=== PATIENT | female | born 2000 | race Caucasian/White ===

== ENCOUNTER 2020-01-27 07:30 | Emergency (ER) | payer SELFPAY ==
[~2020-01-27] VITALS: Ht 162.6 cm; Wt 61.4 kg
[2020-01-27 08:22] VITALS: BP 85/60
== END 2020-01-27 08:27 | disposition home or self-care (01) ==
LOC: ER 07:31
DX: R07.89 Other chest pain (principal); M79.602 Pain in left arm; M54.9 Dorsalgia, unspecified; F41.9 Anxiety disorder, unspecified; F17.200 Nicotine dependence, unspecified, uncomplicated
CPT/HCPCS: 71046; 93005; 99283

== ENCOUNTER 2022-06-07 22:46 | Emergency (ER) | payer SELFPAY ==
[~2022-06-07] VITALS: Ht 162.6 cm; Wt 69.6 kg
[2022-06-07 22:50] VITALS: BP 117/54
[2022-06-07 23:29] LABS: URINE HCG NEGATIVE (NEG)
[2022-06-07 23:30] LABS: COLOR,URINE YELLOW (Yellow); GLUCOSE, URINE NEGATIVE (Neg); KETONES,URINE NEGATIVE (Neg); LEUKOCYTE ESTERASE ,URINE NEGATIVE (Neg); NITRITES, URINE NEGATIVE (Neg); OCCULT BLOOD,URINE NEGATIVE (Neg); PROTEIN,URINE NEGATIVE (Neg); UROBILINOGEN,URINE 0.2 E.U/dL (0.2-1.0)
[2022-06-07 23:30] LABS: BASOPHILS % (AUTO) 0.7 % (0-1); EOSINOPHILS # (AUTO) 0.1 X10'3 (0-0.9); HEMATOCRIT 35.5 % (35.0-45.0); HEMOGLOBIN 11.5 g/dl (12.0-16.0); LYMPHOCYTES # (AUTO) 1.1 X10'3 (1.1-4.8); LYMPHOCYTES % (AUTO) 17.6 % (21-51); MEAN CORPUSCULAR HEMOGLOBIN 28.9 PG (27.0-31.0); MEAN CORPUSCULAR HGB CONC 32.4 g/dL (33.0-36.5); MEAN CORPUSCULAR VOLUME 89.3 FL (78-98); MONOCYTES # (AUTO) 0.4 X10'3 (0-0.9); MONOCYTES % (AUTO) 5.5 % (2-12); NEUTROPHILS # (AUTO) 4.8 X10'3 (1.8-7.7); NEUTROPHILS % (AUTO) 74.2 % (42-75); PLATELET COUNT 248 X10'3 (140-440); RED BLOOD COUNT 3.97 X10'6 (4.20-5.60); WHITE BLOOD COUNT 6.5 X10'3 (4.5-11.0)
[2022-06-07 23:36] LABS: CLARITY,URINE SLIGHTLY CLOUDY (Clear); UA COLLECTION TYPE CLN CATCH MIDSTREAM
[2022-06-07 23:37] LABS: BACTERIA,URINE 1+ /HPF (Neg); RBC,URINE NONE SEEN /HPF (0-2); WBC,URINE 0-4 /HPF (0-4)
[2022-06-07 23:37] LABS: ALANINE AMINOTRANSFERASE 21 U/L (12-78); ALBUMIN 3.7 G/DL (3.4-5.0); ALKALINE PHOSPHATASE 64 IU/L (46-116); ANION GAP 4 (8-16); ASPARTATE AMINO TRANSFERASE 41 U/L (10-37); BILIRUBIN,TOTAL 0.5 MG/DL (0.1-1.0); BLOOD UREA NITROGEN 6 MG/DL (7-18); BUN/CREATININE RATIO 7.5 (6.6-38.0); CALCIUM 8.4 MG/DL (8.5-10.1); CHLORIDE 103 MMOL/L (99-107); GLUCOSE 82 MG/DL (70-104); LIPASE 99 U/L (73-393); POTASSIUM 3.6 MMOL/L (3.5-5.1); SODIUM 138 MMOL/L (135-145); TOTAL PROTEIN 7.5 G/DL (6.4-8.2); eGFR 90 ML/MIN
[2022-06-07 23:38] LABS: MUCUS STRANDS MODERATE /LPF (Neg); SQUAMOUS EPITHELIAL CELL,UR FEW /LPF (FEW)
== END 2022-06-08 08:48 | disposition left against medical advice (07) ==
LOC: ER 22:47
DX: N23 Unspecified renal colic (principal); Z53.21 Procedure and treatment not carried out due to patient leaving prior to being seen by health care provider
CPT/HCPCS: 36415; 80053; 81001; 81025; 83690; 85025

== ENCOUNTER 2022-12-09 16:57 | Emergency (ER) | payer OTHER ==
[~2022-12-09] VITALS: Ht 162.6 cm; Wt 75.0 kg
[2022-12-09 17:02] VITALS: BP 101/60
[2022-12-09 18:24] LABS: URINE HCG NEGATIVE (NEG)
[2022-12-09 18:34] LABS: CLARITY,URINE SLIGHTLY CLOUDY (Clear); COLOR,URINE YELLOW (Yellow); GLUCOSE, URINE NEGATIVE (Neg); KETONES,URINE NEGATIVE (Neg); LEUKOCYTE ESTERASE ,URINE NEGATIVE (Neg); NITRITES, URINE NEGATIVE (Neg); OCCULT BLOOD,URINE NEGATIVE (Neg); PROTEIN,URINE NEGATIVE (Neg); UROBILINOGEN,URINE 0.2 E.U/dL (0.2-1.0)
[2022-12-09 19:05] LABS: UA COLLECTION TYPE CLN CATCH MIDSTREAM
[2022-12-09 19:07] LABS: SQUAMOUS EPITHELIAL CELL,UR MANY /LPF (FEW)
[2022-12-09 19:08] LABS: BACTERIA,URINE 2+ /HPF (Neg); WBC,URINE 0-4 /HPF (0-4)
[2022-12-09 19:09] LABS: RBC,URINE 0-2 /HPF (0-2)
[2022-12-09] MEDS ORDERED: FLUT16SP2 BOTHNARES ×3 (19:19→19:20)
[2022-12-09] MEDS ORDERED: ONDA4TAB12 PO ×3 (19:19→19:20)
[2022-12-09] MEDS ORDERED: ondansetron 4mg rapidly disintigrating tab PO ONE (19:20)
[2022-12-09 19:25] LABS: AMORPHOUS PHOSPHATES 1+
== END 2022-12-09 19:31 | disposition home or self-care (01) ==
LOC: ER 16:57
DX: B34.9 Viral infection, unspecified (principal); R30.0 Dysuria; R39.15 Urgency of urination; R35.0 Frequency of micturition; R11.0 Nausea; F41.9 Anxiety disorder, unspecified; Z79.899 Other long term (current) drug therapy
CPT/HCPCS: 81001; 81025; 99283

== ENCOUNTER 2023-09-18 20:11 | Emergency (ER) | payer OTHER ==
[~2023-09-18] VITALS: Ht 162.6 cm; Wt 68.2 kg
[~2023-09-18 20:11] MED LIST: FLUT16SP2 BOTHNARES; ONDA4TAB12 PO
[2023-09-18 20:22] VITALS: TEMP 97.9
[2023-09-18 21:33] LABS: EOSINOPHILS # (AUTO) 0.4 X10'3 (0-0.9); MEAN CORPUSCULAR VOLUME 89.2 FL (78-98); MONOCYTES # (AUTO) 0.4 X10'3 (0-0.9)
[2023-09-18 21:35] LABS: BASOPHILS # (AUTO) 0.1 X10'3 (0-0.2); BASOPHILS % (AUTO) 1.2 % (0-1); EOSINOPHILS % (AUTO) 6.3 % (0-6); HEMATOCRIT 38.9 % (35.0-45.0); HEMOGLOBIN 13.1 g/dl (12.0-16.0); LYMPHOCYTES # (AUTO) 1.5 X10'3 (1.1-4.8); LYMPHOCYTES % (AUTO) 22.1 % (21-51); MEAN CORPUSCULAR HGB CONC 33.6 g/dL (33.0-36.5); MEAN PLATELET VOLUME 9.6 FL (7.4-10.4); MONOCYTES % (AUTO) 5.9 % (2-12); NEUTROPHILS # (AUTO) 4.5 X10'3 (1.8-7.7); NEUTROPHILS % (AUTO) 64.5 % (42-75); PLATELET COUNT 253 X10'3 (140-440); RED BLOOD COUNT 4.37 X10'6 (4.20-5.60); RED CELL DISTRIBUTION WIDTH 13.9 % (11.5-14.5); WHITE BLOOD COUNT 6.9 X10'3 (4.5-11.0)
[2023-09-18 21:43] LABS: HCG SERUM QL NEGATIVE
[2023-09-18 21:44] LABS: ALANINE AMINOTRANSFERASE 17 U/L (12-78); ALBUMIN 3.6 G/DL (3.4-5.0); ALBUMIN/GLOBULIN RATIO 0.8 (1.1-1.5); ALKALINE PHOSPHATASE 71 IU/L (46-116); ANION GAP 7 (8-16); ASPARTATE AMINO TRANSFERASE 13 U/L (10-37); BILIRUBIN,TOTAL 0.2 MG/DL (0.1-1.0); BLOOD UREA NITROGEN 11 MG/DL (7-18); BUN/CREATININE RATIO 15.1 (10.0-20.0); CALCIUM 8.9 MG/DL (8.5-10.1); CHLORIDE 103 MMOL/L (99-107); CREATININE 0.73 MG/DL (0.40-0.90); GLUCOSE 85 MG/DL (70-104); LIPASE 35 U/L (16-77); POTASSIUM 4.3 MMOL/L (3.5-5.1); SODIUM 138 MMOL/L (135-145); TOTAL CARBON DIOXIDE 28.4 MMOL/L (24-32); TOTAL PROTEIN 8.3 G/DL (6.4-8.2); eCRCL 104 ML/MIN; eGFR > 90 ML/MIN
[2023-09-18 22:26] LABS: PLATELET ESTIMATE NORMAL; TOTAL CELLS COUNTED 100
[2023-09-18] MEDS: dicyclomine 10 MG capsule PO ONE (22:27)
[2023-09-18] MEDS: ondansetron 4mg rapidly disintigrating tab PO ONE (22:27)
[2023-09-18] MEDS: normal saline 1000ml 1,000 ML IV ONE (22:28)
[2023-09-18] MEDS ORDERED: ketorolac trometh. 30mg/ml inj. IV ONE (23:00)
[2023-09-18] MEDS: metoclopramide 5 mg/ml inj IV ONE (23:09)
[2023-09-18] MEDS: ketorolac tromethamine 15mg/ml inj. IV ONE (23:09)
[2023-09-18] MEDS ORDERED: METO10TA3 PO (23:49)
[2023-09-18] MEDS ORDERED: PERM60CR19 TOP (23:49)
[2023-09-18 23:50] LABS: BILIRUBIN,URINE NEGATIVE (Neg); CLARITY,URINE SLIGHTLY CLOUDY (Clear); COLOR,URINE YELLOW (Yellow); GLUCOSE, URINE NEGATIVE (Neg); KETONES,URINE NEGATIVE (Neg); LEUKOCYTE ESTERASE ,URINE NEGATIVE (Neg); NITRITES, URINE NEGATIVE (Neg); OCCULT BLOOD,URINE NEGATIVE (Neg); PH,URINE 6.5 (4.8-8.0); PROTEIN,URINE NEGATIVE (Neg); UROBILINOGEN,URINE 0.2 E.U/dL (0.2-1.0)
[2023-09-18 23:58] LABS: UA COLLECTION TYPE CLN CATCH MIDSTREAM
[2023-09-19] LABS: BACTERIA,URINE 1+ /HPF (Neg); RBC,URINE 0-2 /HPF (0-2); SQUAMOUS EPITHELIAL CELL,UR MANY /LPF (FEW)
[2023-09-19 00:01] LABS: TRANSITIONAL EPI CELLS,URINE FEW /HPF; WBC,URINE 0-4 /HPF (0-4)
[2023-09-19 00:09] LABS: URINE AMPHETAMINE SCREEN NEGATIVE (Neg); URINE BARBITUATE SCREEN NEGATIVE (Neg); URINE BENZODIAZEPINES SCREEN NEGATIVE (Neg); URINE CANNABINOID SCREEN NEGATIVE (Neg); URINE COCAINE SCREEN NEGATIVE (Neg); URINE METHADONE SCREEN NEGATIVE (Neg); URINE OPIATE SCREEN NEGATIVE (Neg); URINE PHENCYCLIDINE SCREEN NEGATIVE (Neg)
[2023-09-19 00:12] VITALS: BP 105/64; PULSE 93; RESP 18; O2SAT 98
== END 2023-09-19 00:15 | disposition home or self-care (01) ==
LOC: ER 20:11
DX: R11.2 Nausea with vomiting, unspecified (principal); R21 Rash and other nonspecific skin eruption; Z79.899 Other long term (current) drug therapy
CPT/HCPCS: 36415; 74176; 80053; 80305; 81001; 83690; 84703; 85007; 85025; 96361; 96374; 96375; 99285; J1885; J2765; J7030

== ENCOUNTER 2023-12-02 01:47 | Emergency (ER) | payer OTHER ==
[~2023-12-02] VITALS: Ht 162.6 cm; Wt 69.9 kg
[~2023-12-02 01:47] MED LIST changes: +ONDA-243 PO; -ONDA4TAB12 PO
[2023-12-02 02:20] LABS: BASOPHILS # (AUTO) 0.1 X10'3 (0-0.2); BASOPHILS % (AUTO) 0.9 % (0-1); EOSINOPHILS # (AUTO) 0.1 X10'3 (0-0.9); EOSINOPHILS % (AUTO) 1.9 % (0-6); HEMATOCRIT 35.6 % (35.0-45.0); HEMOGLOBIN 11.8 g/dl (12.0-16.0); LYMPHOCYTES # (AUTO) 1.8 X10'3 (1.1-4.8); LYMPHOCYTES % (AUTO) 32.5 % (21-51); MEAN CORPUSCULAR HEMOGLOBIN 29.4 PG (27.0-31.0); MEAN CORPUSCULAR HGB CONC 33.2 g/dL (33.0-36.5); MEAN CORPUSCULAR VOLUME 88.7 FL (78-98); MEAN PLATELET VOLUME 8.8 FL (7.4-10.4); MONOCYTES # (AUTO) 0.5 X10'3 (0-0.9); MONOCYTES % (AUTO) 8.5 % (2-12); NEUTROPHILS # (AUTO) 3.2 X10'3 (1.8-7.7); NEUTROPHILS % (AUTO) 56.2 % (42-75); PLATELET COUNT 240 X10'3 (140-440); RED BLOOD COUNT 4.02 X10'6 (4.20-5.60); WHITE BLOOD COUNT 5.7 X10'3 (4.5-11.0)
[2023-12-02 03:16] LABS: ALBUMIN 3.5 G/DL (3.4-5.0); ANION GAP 9 (8-16); BLOOD UREA NITROGEN 11 MG/DL (7-18); BUN/CREATININE RATIO 15.1 (10.0-20.0); CALCIUM 9.1 MG/DL (8.5-10.1); CHLORIDE 103 MMOL/L (99-107); CREATININE 0.73 MG/DL (0.40-0.90); GLUCOSE 94 MG/DL (70-104); POTASSIUM 3.5 MMOL/L (3.5-5.1); PRO BRAIN NATRIURETIC PEPTIDE < 30 PG/ML (0-125); SODIUM 138 MMOL/L (135-145); eCRCL 104 ML/MIN; eGFR > 90 ML/MIN
[2023-12-02] MEDS ORDERED: iohexol 350MG/ML 100ml bottle IV ONE (09:04)
[2023-12-02 09:48] LABS: HCG SERUM QL NEGATIVE
[2023-12-02 13:54] VITALS: BP 93/63; PULSE 82; RESP 16; TEMP 98; O2SAT 97
== END 2023-12-02 13:56 | disposition home or self-care (01) ==
LOC: ER 01:48
DX: R09.1 Pleurisy (principal); R07.9 Chest pain, unspecified; K21.9 Gastro-esophageal reflux disease without esophagitis; F41.9 Anxiety disorder, unspecified; R22.42 Localized swelling, mass and lump, left lower limb; Z79.51 Long term (current) use of inhaled steroids
CPT/HCPCS: 36415; 71045; 71275; 80048; 83880; 84484; 84703; 85025; 93005; 93970; 99285; Q9967

== ENCOUNTER 2024-10-05 21:42 | Emergency (ER) | payer OTHER ==
[~2024-10-05] VITALS: Ht 162.6 cm; Wt 74.9 kg
[~2024-10-05 21:42] MED LIST changes: +SUCR1TAB34 PO
--- NOTE | 2024-10-05 22:07 | Physician Documentation ---
History of Present Illness General Chief Complaint: Urinary Symptoms Stated Complaint: UTI Time Seen by MD: 21:53 Primary Medical Doctor: AMAIRANI ENCISO Mode of Arrival: POV History of Present Illness Initial Comments 24-year-old female who presents to the emergency department with complaints of dysuria, frequent urination as suspected UTI. Patient reports prior history of the same reports frequency of UTIs. Has had stenting of the ureter in the past due to kidney stone. No rigors or myalgias at this time with a mild complain of nausea. Patient reports his symptoms normally happened after sexual intercourse. Not certain of possible . Denies risk of STIs. Medication Reconciliation Allergies: Coded Allergies: No Known Allergies (Unverified , 05/07/24) Scheduled Fluticasone Propionate (Flonase), 2 SPRAYS BOTHNARES DAILY Sucralfate (Carafate), 1 TAB PO Q6H Scheduled PRN ONDANSETRON ODT 4mg tablet (Ondansetron Odt), 1 TABLET PO Q6H PRN for nausea/vomiting Past Medical History Past Medical History: *GI/HEPATOBILIARY*, GERD, Anxiety Past Surgical History: no surgical history Alcohol Use: None Drug Use: none Lives In: Home Review of Systems All Other Systems at this time: Reviewed and Negative Constitutional: Denies: fever, chills, diaphoresis, weakness : Reports: dysuria, frequency, pain; Denies: flank pain, hematuria, discharge Physical Exam Physical Exam Vital Signs: RN Vital Signs have been reviewed: Yes, Temperature: 97.4, Source: Temporal, Heart Rate: 108, Respiratory Rate: 12, BP: 107/59, Pulse Oximetry: 98, Weight: 74.900 General Appearance: alert, WD/WN, mild distress Head: normal inspection Face: normal inspection Pupils/EOM/Fundus: PERRLA Respiratory: no respiratory distress Chest: accessory muscle use Cardiovascular: normal peripheral pulses Gastrointestinal: normal palpation Back: normal inspection Progress Results/Orders Results/Orders Orders - RACHEL GONZALEZ PAC Urinalysis, Cult If Indicated (10/05/24 22:01) Hcg, Ur Ql (10/05/24 22:01) Completed Orders - RACHEL GONZALEZ PAC Ceftriaxone Im Kit W/Lidocaine (Rocephin (10/05/24 22:10) Medications Received in ER Medications (Trade) Dose Ordered Sig/Moises Route PRN Reason Start Time Stop Time Status Last Admin Dose Admin (Rocephin 1GM IM kit (w/lidocaine diluent)) 1,000 mg ONCE ONCE IM 10/05/24 22:10 10/05/24 22:11 DC 10/05/24 22:17 1,000 MG Vital Signs 10/05/24 10/05/24 21:44 21:53 Temp 97.4 Pulse 108 Resp 14 12 B/P (MAP) 107/59 Pulse Ox 98 Laboratory Tests Test 10/05/24 21:48 Urine Comment Medical Decision Making Differential Diagnosis Examination history of 24-year-old female who is that of acute UTI. We will treat empirically with ceftriaxone due to prior history of stenting and follow the urine culture. Urine HCG negative. Pyridium Rx for dysuria. Patient was discharged without suspected pyelonephritis or systemic illness. Departure Disposition: HOME / SELF CARE / HOMELESS Impression: Primary Impression: Acute urinary tract infection Condition: Stable Discharge Instructions: Dysuria, Urinary Tract Infection, Adult Additional Instructions: Tonight in the Emergency department you received an injection of Ceftriaxone. Make a follow up appointment with your primary care physician [facility] for follow up on your urinalysis microscopy and culture. If you develop fever nausea or vomiting or flank pain in the interim please return to the Emergency department. Thank you for visiting emergency department of [facility]. Referrals: NO PRIMARY CARE PROVIDER (PCP) Prescriptions Phenazopyridine Hcl (Pyridium tablet) 100 Mg Tablet 2 TAB PO Q8H PRN for pain, #12 TAB Prov: RACHEL GONZALEZ 10/05/24 Education Educated: Patient Educated regarding: diagnosis, treatment Signature Scribe Signature: . Attestation: . RACHEL GONZALEZ PAC October 05, 2024 22:07
[2024-10-05] MEDS: CefTRIAXone 1000mg IM Kit (w/lidocaine diluent) IM ONE (22:17)
[2024-10-05 22:21] LABS: BILIRUBIN,URINE NEGATIVE (Neg); CLARITY,URINE SLIGHTLY CLOUDY (Clear); COLOR,URINE YELLOW (Yellow); GLUCOSE, URINE NEGATIVE (Neg); KETONES,URINE TRACE mg/dl (Neg); LEUKOCYTE ESTERASE ,URINE SMALL (Neg); NITRITES, URINE NEGATIVE (Neg); OCCULT BLOOD,URINE NEGATIVE (Neg); PROTEIN,URINE NEGATIVE (Neg); UROBILINOGEN,URINE 0.2 E.U/dL (0.2-1.0)
[2024-10-05 22:25] VITALS: BP 128/68; PULSE 72; RESP 14; TEMP 98.6; O2SAT 99
[2024-10-05 22:27] LABS: UA COLLECTION TYPE NON-SPECIFIED
[2024-10-05] MEDS ORDERED: PHEN-786 PO (22:27)
[2024-10-05 22:39] LABS: URINE HCG NEGATIVE (NEG)
[2024-10-05 22:40] LABS: BACTERIA,URINE 4+ /HPF (Neg); RBC,URINE 0-2 /HPF (0-2); SQUAMOUS EPITHELIAL CELL,UR MANY /LPF (FEW); WBC,URINE 50-100 /HPF (0-4)
== END 2024-10-05 22:23 | disposition home or self-care (01) ==
LOC: ER 21:43
DX: N39.0 Urinary tract infection, site not specified (principal)
CPT/HCPCS: 81001; 81025; 96372; 99283; J0696

== ENCOUNTER 2024-10-10 02:53 | Emergency (ER) | payer OTHER ==
[~2024-10-10] VITALS: Ht 162.6 cm; Wt 59.7 kg
[~2024-10-10 02:53] MED LIST changes: +PHEN-786 PO
[2024-10-10 02:57] VITALS: BP 107/56; PULSE 89; RESP 15; O2SAT 98
--- NOTE | 2024-10-10 03:13 | Physician Documentation ---
History of Present Illness ~ Chief Complaint: Urinary Symptoms Stated Complaint: URINARY SYMPTOMS Time Seen by MD: 03:04 Primary Medical Doctor: AMAIRANI ENCISO HPI This is a very pleasant 24-year-old female who comes in for evaluation of ongoing urinary tract infection symptoms after she has been diagnosed with the UTI four days ago, received a shot of antibiotic. She states that she transiently got better but then the symptoms returned. She also reports that her genitourinary area is now irritated concerning for a yeast infection. The particular palliating or aggravating factors. Denies any other symptoms such as fever, chills, flank pain. No concern for tobacco, alcohol or illicit substances use Medication Reconciliation Allergies: Coded Allergies: No Known Allergies (Unverified , 10/10/24) Scheduled Fluticasone Propionate (Flonase), 2 SPRAYS BOTHNARES DAILY Sucralfate (Carafate), 1 TAB PO Q6H Scheduled PRN ONDANSETRON ODT 4mg tablet (Ondansetron Odt), 1 TABLET PO Q6H PRN for nausea/vomiting Phenazopyridine Hcl (Pyridium tablet), 2 TAB PO Q8H PRN for pain Past Medical History Past Medical History: *GI/HEPATOBILIARY*, GERD, Anxiety Past Surgical History: no surgical history Alcohol Use: None Drug Use: none Lives In: Home Review of Systems ROS 10 point review of systems was performed and unless noted above in HPI is negati ve for acute process/complaint. Physical Exam Vital Signs: Temperature: 96.8, Source: Temporal, Heart Rate: 89, Respiratory Rate: 15, BP: 107/56, Pulse Oximetry: 98, Weight: 59.680 Physical Exam Physical examination: GENERAL: Awake, alert, oriented, GCS 15, no apparent distress, non-toxic appearing, answers questions, follows commands appropriately. HEENT: Atraumatic, normocephalic, pupils equal, extraocular muscles intact Active gross movements, sclerae anicteric, mucus membranes moist, no stridor. NECK: Midline, no JVD CARDIOVASCULAR: Good skin perfusion without evidence of pallor, mottling. PULMONARY: Nonlabored, symmetric chest rise, no audible wheezing, no accessory muscle use, no respiratory distress, speaking in full sentences. GASTROINTESTINAL: Not distended. NEUROLOGIC: Lucid with normal mental status. Normal facial symmetry. Moves all extremities symmetrically and with purpose. No truncal ataxia. Speech is fluid without evidence of dysarthria or aphasia, no focal deficits appreciated. EXTREMITIES: Acute deformities Skin: warm, dry PSYCHIATRIC: Normal affect, normal insight, normal concentration. Focused exam: [] Progress Results/Orders Results/Orders Orders - LOTTIE BAGLEY DO Miconazole Nitrate Vag Comb Pk (Monistat (10/10/24 21:00) Amox Tr/Potassium Clavulanate (Augmentin (10/10/24 03:10) Vital Signs 10/10/24 02:57 Temp 96.8 Pulse 89 Resp 15 B/P (MAP) 107/56 Pulse Ox 98 Medical Decision Making Findings Facility Status: ED Holds, RME process The plan was discussed with the patient, who demonstrates clear understanding of the plan and is in agreement with the plan unless otherwise noted in the chart. All questions have been answered, all concerns were addressed unless otherwise documented. I was available throughout their ED stay for frequent reassessment and questions. Differential Diagnoses (considered and possible or likely): [Urinary tract infection, pyelitis, pyelonephritis, vaginal candidiasis] ??Differential Diagnoses (considered and unlikely, not requiring evaluation curr ently): [No evidence of trauma] MDM Data Please see [facility] for the following: Independent Historians and external Records Review. Historian: [Patient] Independent Historians: ?[Record review including her positive for UTI UA from 10/05/2024] Medication Management: [Reviewed medication list] Social History and determinants: [Reviewed] Please see the body of the note for the following: Any independent interpretations of ECG, imaging studies. All vitals signs/haemodynamics, ordered tests were independently reviewed and interpreted by myself. Nursing triage complaint and vitals reviewed, additional nursing notes were reviewed as available and I agree unless otherwise noted or documented in contradiction in the chart Vital Signs: Independently reviewed Labs: Independently interpreted Imaging: Independently interpreted Old Medical Records: Independently reviewed, see HPI for relevant summary and information Pulse Oximetry: [100%] interpreted as [normal on room air] by me Additionally notably showing: [Hemodynamically stable] Tests considered but not ordered include: [Hematologic workup and imaging has been considered but does not appear to be necessary given clinical nature of diagnosis] Social Determinants of Health Impact: Patient was evaluated in [facility], [facility] [place] to healthcare due to below par ratio of patient to medical providers. [] Comorbid Conditions Impacting Present Evaluation and Care/Treatment: [None] Management Discussions with other Healthcare Providers: [Non] Treatment and Disposition Medication Management (Given or considered): [Initial dose of antibiotics and antifungal]. See EMR for details Consideration for Hospitalization/Escalation/Deescalation of Care: Admission for observation has been considered, [however the patient is able to tolerate p.o., their symptoms are controlled, they are able to rely on oral medications, and their chief complaint/diagnosis can be managed on outpatient basis.] ?ED Course:?[No clinical deterioration] patient denies any chance of being , however I do not feel that in the absence of test she could be a good candidate for Diflucan. We will provide her with Monistat. ?Shared decision making:?[Patient is hemodynamically stable for discharge home with follow with their primary care provider. [ ] Specific and cautious return precautions provided and discussed with full understanding. Any incidental findings were also discussed and follow up recommendations given. [] All questions answered. Patient/family were able to verbalize back return precautions. Patient/family agree to plan. Copies of imaging and laboratory studies were provided.] Code status:?FULL Please see the full Electronic Medical Record for full details of nursing documentation, medications list, other records of complete past medical history and conditions, vital signs, laboratory studies, and any radiologic study interpretations by radiologists. Portions of this note were completed using [employer] dictation software and as a result there may exist minor errors in spelling. I have reviewed elements of past family and social history and agree as included in note. Departure Disposition: HOME / SELF CARE / HOMELESS Impression: Primary Impression: Acute urinary tract infection Additional Impression: Vulvovaginal candidiasis Condition: Stable Discharge Instructions: Urinary Tract Infection, Adult Referrals: NO PRIMARY CARE PROVIDER (PCP) Prescriptions Miconazole Nitrate (Monistat 7) 2 % Cream.appl 1 APPLICATOR VG HS for 7 Days, #45 GM 0 Refills Prov: LOTTIE BAGLEY DO 10/10/24 Phenazopyridine Hcl (Pyridium tablet) 100 Mg Tablet 1 TAB PO Q8H for urinary discomfort for 2 Days, #6 TAB 0 Refills Prov: LOTTIE BAGLEY DO 10/10/24 Amox Tr/Potassium Clavulanate (Augmentin 875-125 Tablet) 1 Each Tablet 1 TAB PO Q12H for 10 Days, #20 TAB Prov: LOTTIE BAGLEY DO 10/10/24 Education Educated: Patient Educated regarding: diagnosis, treatment, prognosis, need for follow up Signature Scribe Signature: No scribe Attestation: This note accurately reflects clinical decisions, work performed by myself, DO KEVYN Weeks NICHOLAS M DO October 10, 2024 03:13
[2024-10-10] MEDS ORDERED: AMOX-117 PO (03:15)
[2024-10-10] MEDS ORDERED: MICO45CR73 VG (03:15)
[2024-10-10] MEDS ORDERED: PHEN-786 PO (03:15)
[2024-10-10] MEDS: amox tr/potassium clavulanate 875/125mg TAB PO ONE (03:44)
[2024-10-10] MEDS: miconazole nitrate 2% 45gm VAG cream VG SCH (03:44)
[2024-10-10 03:50] VITALS: TEMP 96.8
== END 2024-10-10 03:50 | disposition home or self-care (01) ==
LOC: ER 02:53
DX: N39.0 Urinary tract infection, site not specified (principal); B37.31 Acute candidiasis of vulva and vagina; K21.9 Gastro-esophageal reflux disease without esophagitis; F41.9 Anxiety disorder, unspecified; Z79.52 Long term (current) use of systemic steroids; Z79.899 Other long term (current) drug therapy
CPT/HCPCS: 99283

== ENCOUNTER 2024-11-05 21:21 | Emergency (ER) | payer OTHER ==
[~2024-11-05] VITALS: Ht 162.6 cm; Wt 56.0 kg
[~2024-11-05 21:21] MED LIST changes: +MICO45CR73 VG
--- NOTE | 2024-11-05 22:12 | RADIOLOGY REPORT ---
CHEST RADIOGRAPH Indication: CWP Technique: Single frontal view of the chest was obtained Comparison: DI CHEST,SINGLE VIEW on DOS: 12/02/23 FINDINGS: Lines and Tubes: None Lungs: Clear Pleura: No effusion. No pneumothorax. Cardiomediastinal contours: Unremarkable Bones: Unremarkable IMPRESSION: Clear lungs.
--- NOTE | 2024-11-05 23:23 | Physician Documentation ---
History of Present Illness ~ Chief Complaint: Chest Wall Pain Stated Complaint: CP/SOB Time Seen by MD: 23:00 Primary Medical Doctor: AMAIRANI ENCISO [facility] This is a 24-year-old female presents with intermittent chest pain described as sharp that moves around in her chest, worse with deep breathing, patient reports occasionally had feeling of numbness in her left arm. Reports no history of cardiac disease in herself or her immediate family. Patient reports that she has currently been worked up for persistent nausea with occasional vomiting and GERD. Medication Reconciliation Allergies: Coded Allergies: No Known Allergies (Unverified , 10/10/24) Scheduled Fluticasone Propionate (Flonase), 2 SPRAYS BOTHNARES DAILY Miconazole Nitrate (Monistat 7), 1 APPLICATOR VG HS Phenazopyridine Hcl (Pyridium tablet), 1 TAB PO Q8H Sucralfate (Carafate), 1 TAB PO Q6H Scheduled PRN ONDANSETRON ODT 4mg tablet (Ondansetron Odt), 1 TABLET PO Q6H PRN for nausea/vomiting ONDANSETRON ODT 4mg tablet (Ondansetron Odt), 1 TAB PO Q6H PRN PRN for nausea/vomiting Phenazopyridine Hcl (Pyridium tablet), 2 TAB PO Q8H PRN for pain Past Medical History Past Medical History: *GI/HEPATOBILIARY*, GERD, Anxiety Past Surgical History: no surgical history Alcohol Use: None Drug Use: none Lives In: Home Review of Systems ROS Intermittent left-sided chest pain as stated above in the HPI, otherwise all systems are reviewed and negative. Physical Exam Vital Signs: Temperature: 98.2, Source: Temporal, Heart Rate: 100, Respiratory Rate: 18, BP: 107/89, Pulse Oximetry: 97, Weight: 56.000 Oxygen Flow Rate: 0 Physical Exam VITALS: Reviewed and as above. GENERAL: Alert, nontoxic appearing, no apparent distress. RESPIRATORY: No increased work of breathing, no respiratory distress, speaking in full clear sentences, lung sounds clear in all abarca CHEST: Nontender to palpation CV: Regular rate and rhythm no murmur BACK: No CVA tenderness Progress Results/Orders Results/Orders Vital Signs 11/05/24 11/05/24 21:32 23:34 Temp 98.2 98.6 Pulse 100 98 Resp 18 16 B/P (MAP) 107/89 160/86 Pulse Ox 97 99 O2 Flow Rate 0 EKG/XRAY/CT/US/VASC/MRI EKG : Additional Comment EKG at 2125 interpreted by myself as sinus tachycardia at a rate of 111, normal axis, no ST segment elevation or depression Chest X-Ray : Additional Comments CHEST RADIOGRAPH Indication: CWP Technique: Single frontal view of the chest was obtained Comparison: DI CHEST,SINGLE VIEW on DOS: 12/02/23 FINDINGS: Lines and Tubes: None Lungs: Clear Pleura: No effusion. No pneumothorax. Cardiomediastinal contours: Unremarkable Bones: Unremarkable IMPRESSION: Clear lungs. Electronically Signed by:VERA ZUÑIGA DO Date & Time: 11/05/242208 Dictated by: VERA ZUÑIGA DO Dictation date and time: 11/05/242155 I have reviewed and agree with the radiology report. I have reviewed and interpreted the imaging as: No focal consolidation or pneumothorax Medical Decision Making Findings This 24-year-old female presented with intermittent sharp chest pain most prominent on left, the patient reported some numbness in her left arm it is not currently present. It is reassuring patient reports no history of cardiac disease in herself or family, EKG did not demonstrate evidence of dysrhythmia or ischemia or infarction. Reassuring patient is reporting no current chest pain or shortness of breath. Chest x-ray did not demonstrate evidence of pneumonia or pneumothorax. Patient is currently on medications for GERD though reports episodes of gagging and vomiting, this is being worked up by primary care provider though I will add prescription for Zofran to help with her vomiting. Physical exam was benign patient's vital signs stable. Based on risk factors patient is at low risk of major adverse cardiac event is appropriate for outpatient follow up with the primary care. Patient provided follow up instr uctions, and return to care precautions which she verbalized understanding of. Differential Dx:Considerations: Include: chest wall pain, cholelithiasis, CHF, costochondritis, esophageal reflux/spasm, gastritis, myocardial infarction, pericarditis, pancreatitis, pneumonia, pneumothorax Departure Disposition: 01 HOME / SELF CARE / HOMELESS Impression: Primary Impression: Chest wall pain Condition: Improved Discharge Instructions: Chest Wall Pain Additional Instructions: Your chest x-ray and EKG looks reassuring. I have prescribed you some Zofran since he reported frequent episodes of vomiting, this medication may help with your vomiting though you will still need to see your primary care provider for further workup. Please follow up with your primary care provider in the next few days about the chest wall pain you are experiencing. Please return to the emergency department for any new or worsening concerning symptoms. Referrals: NO PRIMARY CARE PROVIDER (PCP) Prescriptions ONDANSETRON ODT 4mg tablet (ONDANSETRON ODT) 4 Mg Tab.rapdis 1 TAB PO Q6H PRN PRN for nausea/vomiting for 4 Days, #16 TAB 0 Refills Prov: GANGA MCCORMICK 11/05/24 Education Educated: Patient Educated regarding: diagnosis, treatment, prognosis, need for follow up Signature Scribe Signature: No Scribe Attestation: The note accurately reflects work and decisions made by me.BROOKE Ambrocio 11/06/24 01:51 GANGA MCCORMICK Nov 05, 2024 23:23
[2024-11-05 23:34] VITALS: BP 160/86; PULSE 98; RESP 16; TEMP 98.6; O2SAT 99
[2024-11-05] MEDS ORDERED: ONDA-243 PO (23:42)
--- NOTE | 2024-11-06 07:44 | ELECTROCARDIOGRAPH REPORT ---
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 Martin Ladd Measurements Intervals [place] Rate: 111 P: 72 SD: 126 QRS: 58 QRSD: 87 T: 13 QT: 311 QTc: 423 Interpretive Statements Sinus tachycardia Ventricular premature complex Probable left atrial enlargement RSR' in V1 or V2, probably normal variant Borderline T wave abnormalities Electronically Signed On 11-07-2024 6:35:[address] Martin Ladd Please click the below link to view image of tracing.
== END 2024-11-05 23:39 | disposition home or self-care (01) ==
LOC: ER 21:21
DX: R07.89 Other chest pain (principal); F41.9 Anxiety disorder, unspecified
CPT/HCPCS: 71045; 93005; 99283

== ENCOUNTER 2024-11-19 21:03 | Emergency (ER) | payer OTHER ==
[~2024-11-19] VITALS: Ht 162.6 cm; Wt 63.6 kg
[2024-11-19 21:38] VITALS: TEMP 97.9
[2024-11-19] MEDS: ketorolac trometh 15mg/ml vial 15 MG/ML ML IM ONE (22:01)
--- NOTE | 2024-11-19 22:30 | Physician Documentation ---
History of Present Illness ~ Chief Complaint: Urinary Symptoms Stated Complaint: URINARY INFECTION Time Seen by MD: 01:05 Primary Medical Doctor: AMAIRANI ENCISO HPI Patient presents to the emergency room with increased urinary frequency and burning. Patient has history of reoccurring urinary tract infections and she states she gets some three or 4 times ear. No fevers. Medication Reconciliation Allergies: Coded Allergies: No Known Allergies (Unverified , 10/10/24) Scheduled Fluticasone Propionate (Flonase), 2 SPRAYS BOTHNARES DAILY Miconazole Nitrate (Monistat 7), 1 APPLICATOR VG HS Phenazopyridine Hcl (Pyridium tablet), 1 TAB PO Q8H Sucralfate (Carafate), 1 TAB PO Q6H Scheduled PRN ONDANSETRON ODT 4mg tablet (Ondansetron Odt), 1 TABLET PO Q6H PRN for nausea/vomiting ONDANSETRON ODT 4mg tablet (Ondansetron Odt), 1 TAB PO Q6H PRN PRN for nausea/vomiting Phenazopyridine Hcl (Pyridium tablet), 2 TAB PO Q8H PRN for pain Past Medical History Past Medical History: *GI/HEPATOBILIARY*, GERD, Anxiety Past Surgical History: no surgical history Alcohol Use: None Drug Use: none Lives In: Home Review of Systems ROS All review of systems negative except as per HPI Physical Exam Vital Signs: Temperature: 97.9, Source: Temporal, Heart Rate: 88, Respiratory Rate: 16, BP: 108/73, Pulse Oximetry: 97, Weight: 63.650 Physical Exam General: Patient is awake, alert, oriented x4 in no acute distress and well appearing.~ Head: Normocephalic and atraumatic. Eyes: Conjunctival normal. EOMI. PERRL. ENT: Mucous membranes moist. Neck: Supple, trachea is midline. Chest: Clear to auscultation bilaterally without rales, rhonchi, or wheezes. There is no accessory muscle use or retractions. Cardiac: RRR without murmurs, gallops, or rubs. Abd: Soft, nondistended, mild suprapubic tenderness to palpation without peritonitis Progress Results/Orders Results/Orders Orders - GAEL ANDINO MD Straight Cath For Urine Sample (11/19/24 21:07) Cult Urine + [address] (11/20/24 00:47) Completed Orders - GAEL ANDINO MD Hcg, Ur Ql (11/19/24 21:07) Ua W/Microscopic, Cult If Ind (11/20/24 00:03) Ceftriaxone Im Kit W/Lidocaine (Rocephin (11/20/24 01:10) Medications Received in ER Medications (Trade) Dose Ordered Sig/Moises Route PRN Reason Start Time Stop Time Status Last Admin Dose Admin (Toradol injection) 15 mg ONCE ONCE IM 11/19/24 21:45 11/19/24 21:46 DC 11/19/24 22:01 15 MG Vital Signs 11/19/24 11/19/24 11/19/24 21:38 22:01 23:14 Temp 97.9 Pulse 88 Resp 18 16 17 B/P (MAP) 108/73 Pulse Ox 97 Laboratory Tests Test 11/20/24 00:03 Urine Specimen Description Cln catch midstream Urine Color Yellow Urine Clarity Slightly cloudy Urine pH 6.0 Urine Specific [place] >=1.030 Urine Protein 100 H Urine Glucose (UA) Negative Urine Ketones 15 H Urine Occult Blood Trace-intact Urine Nitrite Negative Urine Bilirubin Moderate Urine Urobilinogen 0.2 Urine Leukocyte Esterase Trace H Urine RBC 3-10 Urine WBC 10-20 H Urine Squamous Epithelial Cells Few Urine Calcium Oxalate Crystals 1+ Urine Amorphous Urates 1+ Urine Bacteria Few Urine Mucus Few Urine Culture Indicated Indicated Volume Urine Centrifuged 5 ml Urine HCG, Qualitative Negative Urine Comment Low volume Medical Decision Making Findings Patient presents to the emergency room with urinary symptoms as per HPI. Differentials include but are not limited to urinary tract infection, interstitial cystitis, fungal infection. Patient's urine is positive for urinary tract infection we will treat her as such. She has been instructed to follow up with your doctor for management of reoccurring urinary tract infections. ER precautions discussed. Patient's vital signs are stable he had not feel she requires labs as I do not suspect sepsis. Departure Disposition: HOME / SELF CARE / HOMELESS Impression: Primary Impression: Acute urinary tract infection Condition: Stable Discharge Instructions: Urinary Tract Infection, Adult Additional Instructions: Follow up with your doctor for management of chronic reoccurring urinary tract infections. Referrals: NO PRIMARY CARE PROVIDER (PCP) Education Educated: Patient Educated regarding: diagnosis, treatment, need for follow up Additional Comment Medical Screen Exam History: This is a 24-year-old female with history of frequent UTIs who presents with suprapubic abdominal pain and dysuria onset yesterday, patient reports symptoms are consistent with previous UTIs. Patient reports last UTI approximately two months prior Exam: VITALS: Reviewed and as above. GENERAL: Alert, nontoxic appearing, no apparent distress. RESPIRATORY: No increased work of breathing, no respiratory distress, speaking in full clear sentences MSE performed in triage and patient returned to ED lobby by nursing staff to to await available ED room The note accurately reflects work and decisions made by me.BROOKE Ambrocio 11/19/24 22:30 Signature Scribe Signature: No scribe Attestation: The note accurately reflects work and decisions made by me.Gael Andino MD 11/20/24 01:15 GANGA MCCORMICK Nov 19, 2024 22:30 GAEL ANDINO MD Nov 20, 2024 01:15
[2024-11-20 00:34] LABS: BILIRUBIN,URINE MODERATE (Neg); CLARITY,URINE SLIGHTLY CLOUDY (Clear); COLOR,URINE YELLOW (Yellow); GLUCOSE, URINE NEGATIVE (Neg); KETONES,URINE 15 mg/dl (Neg); LEUKOCYTE ESTERASE ,URINE TRACE (Neg); NITRITES, URINE NEGATIVE (Neg); OCCULT BLOOD,URINE TRACE-INTACT (Neg); PROTEIN,URINE 100 mg/dl (Neg); UROBILINOGEN,URINE 0.2 E.U/dL (0.2-1.0)
[2024-11-20 00:35] LABS: UA COLLECTION TYPE CLN CATCH MIDSTREAM; URINE HCG NEGATIVE (NEG)
[2024-11-20 00:43] LABS: BACTERIA,URINE FEW /HPF (Neg); MUCUS STRANDS FEW /LPF (Neg); SQUAMOUS EPITHELIAL CELL,UR FEW /LPF (FEW)
[2024-11-20 00:46] LABS: CAL OXALATE CRYSTALS 1+ /HPF (NEGATIVE)
[2024-11-20 00:47] LABS: AMORPHOUS URATES 1+
[2024-11-20] MEDS: CefTRIAXone 1000mg IM Kit (w/lidocaine diluent) IM ONE (01:32)
[2024-11-20 01:38] VITALS: BP 107/76; PULSE 71; RESP 16; O2SAT 98
== END 2024-11-20 01:41 | disposition home or self-care (01) ==
LOC: ER 21:04
DX: N39.0 Urinary tract infection, site not specified (principal); Z79.899 Other long term (current) drug therapy
CPT/HCPCS: 81001; 81025; 87088; 96372; 99284; J0696; J1885

== ENCOUNTER 2025-01-02 16:18 | Emergency (ER) | payer OTHER ==
[~2025-01-02] VITALS: Ht 162.6 cm; Wt 73.3 kg
--- NOTE | 2025-01-02 17:12 | Physician Documentation ---
History of Present Illness ~ Chief Complaint: Urinary Symptoms Stated Complaint: KIDNEY PAIN Time Seen by MD: 17:03 Primary Medical Doctor: AMAIRANI ENCISO [facility] 24-year-old female that presents to the emergency department for evaluation of bilateral back pain associated with dysuria and other urinary symptoms. Reports that she has a history of frequent UTIs and pyelonephritis. She reports that she has been on antibiotics x1 week for UTI but now believes that it has gone to her kidneys as she has significant bilateral back pain. Reports intermittent fevers nausea and dysuria. Medication Reconciliation Allergies: Coded Allergies: No Known Allergies (Unverified , 01/02/25) Scheduled Cefpodoxime Proxetil (Cefpodoxime Proxetil), 2 TAB PO Q12H Fluticasone Propionate (Flonase), 2 SPRAYS BOTHNARES DAILY Miconazole Nitrate (Monistat 7), 1 APPLICATOR VG HS Phenazopyridine Hcl (Pyridium tablet), 1 TAB PO Q8H Sucralfate (Carafate), 1 TAB PO Q6H Scheduled PRN ONDANSETRON ODT 4mg tablet (Ondansetron Odt), 1 TABLET PO Q6H PRN for nausea/vomiting ONDANSETRON ODT 4mg tablet (Ondansetron Odt), 1 TAB PO Q6H PRN PRN for nausea/vomiting Phenazopyridine Hcl (Pyridium tablet), 2 TAB PO Q8H PRN for pain Past Medical History Past Medical History: *GI/HEPATOBILIARY*, GERD, Anxiety Past Surgical History: no surgical history Alcohol Use: None Drug Use: none Lives In: Home Review of Systems ROS As stated above in the HPI, otherwise all systems are reviewed and negative. Physical Exam Vital Signs: Temperature: 98.4, Source: Oral, Heart Rate: 91, Respiratory Rate: 15, BP: 92/64, Pulse Oximetry: 100, Weight: 73.300 Oxygen Flow Rate: 0 Physical Exam VITALS: Reviewed and as above. GENERAL: Alert, no apparent distress. HEENT: Normocephalic, atraumatic, PERRL, EOMI, dry mucosa, no erythema RESPIRATORY: Lungs clear, normal breath sounds, no respiratory distress. CHEST: No accessory muscle use, no retractions CV: Regular rate, rhythm, no edema, no murmur, No: JVD GI: Soft, non-tender, bowels sounds present, no rebound, guarding, or rigidity BACK: Positive CVA tenderness. or swelling MUSCULOSKELETAL No deformities, no edema SKIN: Warm and dry, no rash NEURO: Oriented x4, No motor or sensory deficit PSYCH: Normal mood and affect, no agitation Progress Results/Orders Results/Orders Orders - SHEILA GOMEZ [employer] Cult Urine + [address] Ct (01/02/25 18:16) Ct Abdomen Pelvis (01/02/25 18:15) Completed Orders - JASONSHEILA KHAN [employer] Hcg, Ur Ql (01/02/25 17:03) Cbc/Diff (01/02/25 17:03) Lipase (01/02/25 17:03) CMP (01/02/25 17:03) LA (01/02/25 17:03) Ua W/Microscopic, Cult If Ind (01/02/25 17:05) Ct Abdomen Pelvis (01/02/25 18:15) Vital Signs 01/02/25 01/02/25 01/02/25 16:54 17:39 18:05 Temp 98.4 Pulse 91 75 Resp 15 16 B/P (MAP) 92/64 96/66 (76) Pulse Ox 100 98 O2 Flow Rate 0 0 Laboratory Tests Test 01/02/25 17:05 01/02/25 17:30 Urine Specimen Description Cln catch midstream Urine Color Yellow Urine Clarity Slightly cloudy Urine pH 6.0 Urine Specific [place] 1.020 Urine Protein Negative Urine Glucose (UA) Negative Urine Ketones Negative Urine Occult Blood Negative Urine Nitrite Negative Urine Bilirubin Negative Urine Urobilinogen 0.2 Urine Leukocyte Esterase Negative Urine RBC 0-2 Urine WBC 5-10 H Urine Squamous Epithelial Cells Moderate Urine Transitional Epithelial Cells Moderate Urine Renal Cells Few Urine Bacteria 4+ Urine Mucus Few Urine Culture Indicated Indicated Volume Urine Centrifuged 10 ml Urine HCG, Qualitative Negative Urine Comment White Blood Count 7.0 Red Blood Count 4.41 Hemoglobin 13.3 Hematocrit 38.9 Mean Corpuscular Volume 88.3 Mean Corpuscular Hemoglobin 30.1 Mean Corpuscular Hemoglobin Concent 34.1 Red Cell Distribution Width 13.6 Platelet Count 294 Mean Platelet Volume 9.2 Neutrophils (%) (Auto) 65.2 Lymphocytes (%) (Auto) 23.6 Monocytes (%) (Auto) 7.1 Eosinophils (%) (Auto) 2.9 Basophils (%) (Auto) 1.2 H Neutrophils # (Auto) 4.6 Lymphocytes # (Auto) 1.6 Monocytes # (Auto) 0.5 Eosinophils # (Auto) 0.2 Basophils # (Auto) 0.1 CBC Comment Sodium Level 137 Potassium Level 4.1 Chloride Level 103 Carbon Dioxide Level 29.1 Anion Gap 5 L Blood Urea Nitrogen 9 Creatinine 0.75 Estimated GFR/1.73 m2 > 90 BUN/Creatinine Ratio 12.0 Glucose Level 82 Lactic Acid Level 1.1 Calcium Level 9.0 Total Bilirubin 0.3 Aspartate Amino Transf (AST/SGOT) 16 Alanine Aminotransferase (ALT/SGPT) 17 Alkaline Phosphatase 72 Total Protein 7.8 Albumin 3.6 Globulin 4.2 Albumin/Globulin Ratio 0.9 L Lipase 33 Chemistry Comments Medical Decision Making Findings Patient presenting with flank/back pain. Differential included UTI, pyelonephritis, diverticulitis, nephrolithiasis, appendicitis, cholangitis_. Also considered but less likely given history and physical exam included constipation, bowel perforation, gastritis, pancreatitis, mesenteric ischemia. Patient febrile and given tylenol and Tylenol. High suspicion for Pyelonephritis based on laboratory diagnostics and UA. Patient is currently on antibiotics. Will change antibiotic coverage to encompass Pyelonephritis. Urinary Diff Dx:Considerations: Include: AAA, , Aortic dissection, Ap pendicitis, Bowel obstruction, Cholelithiasis, Choleangitis, DJD, Ectopic , Hepatitis, HNP, Impaction, Intrauterine , Musculoskeletal pain, Ovarian torsion, Pancreatitis, PID, Post-Op complication, Pyelonephritis, Renal failure, Strain, Urinary Obstruction, Urolithiasis, Urinary retention, UTI, Vaginitis, Other Departure Disposition: 01 HOME / SELF CARE / HOMELESS Condition: Stable Discharge Instructions: Pyelonephritis, Adult Additional Instructions: We are assuming the emergency department for evaluation of persistent UTI with suspicion of pyelonephritis. We will change her antibiotic coverage to include coverage for pyelonephritis. Please follow-up with your primary care provider. Please return to the emergency department he has been a worsening of symptoms or any additional concerning symptoms. Referrals: NO PRIMARY CARE PROVIDER (PCP) Prescriptions Cefpodoxime Proxetil (Cefpodoxime Proxetil) 100 Mg Tablet 2 TAB PO Q12H for 10 Days, #20 TAB 0 Refills Prov: SHEILA GOMEZ 01/02/25 Education Educated: Patient Educated regarding: treatment, need for follow up SHEILA GOMEZ Jan 02, 2025 17:11
[2025-01-02 17:53] LABS: MEAN PLATELET VOLUME 9.2 FL (7.4-10.4); RED CELL DISTRIBUTION WIDTH 13.6 % (11.5-14.5)
[2025-01-02 18:05] LABS: URINE HCG NEGATIVE (NEG)
[2025-01-02 18:06] LABS: LEUKOCYTE ESTERASE ,URINE NEGATIVE (Neg); NITRITES, URINE NEGATIVE (Neg); OCCULT BLOOD,URINE NEGATIVE (Neg)
[2025-01-02 18:08] LABS: UA COLLECTION TYPE CLN CATCH MIDSTREAM
[2025-01-02 18:16] LABS: MUCUS STRANDS FEW /LPF (Neg); RENAL CELLS, URINE FEW /HPF; SQUAMOUS EPITHELIAL CELL,UR MODERATE /LPF (FEW)
[2025-01-02 18:16] LABS: CREATININE 0.75 MG/DL (0.40-0.90); TOTAL CARBON DIOXIDE 29.1 MMOL/L (24-32); eCRCL 100 ML/MIN; eGFR > 90 ML/MIN
--- NOTE | 2025-01-02 18:58 | RADIOLOGY REPORT ---
COMPUTERIZED TOMOGRAPHY ABDOMEN AND PELVIS WITHOUT CONTRAST REASON FOR EXAM: flank pain r/out kidney stone COMPARISON: CT CT ABDOMEN PELVIS on DOS: 09/18/23 TECHNIQUE: Spiral scans were acquired from the diaphragm to the symphysis pubis without intravenous c ontrast administration. 2-D coronal and sagittal reformatted images were provided. Radiation optimiza tion: All CT scans at this facility use at least one of these dose optimization techniques: Automated exposure control mA and/or kV adjustment per patient size (includes targeted exams where dose is mat ched to clinical indication) or iterative reconstruction. RADIATION DOSE: CTDI: 17 mGy DLP: 832 mGy-cm FINDINGS: The lung bases are clear. There is no pleural effusion. There is no pericardial effusion. The spleen is not enlarged. The liver is normal in size and contour. Evaluation of the abdominal org ans is suboptimal in the absence of intravenous contrast. No calcified gallstone is identified. The gallbladder is not distended. Unenhanced appearance of the pancreas is unremarkable. The adrenal glan ds are normal. The kidneys are similar in size. There is no hydronephrosis of either kidney. There is no renal, ureteral, or bladder calculus. There is no abdominal aortic aneurysm. No pathologic lym phadenopathy is identified by size criteria. No free fluid is identified in the abdomen or pelvis. Th e colonic stool burden is small. The appendix is normal. There is no pathologic distention of the s mall bowel to suggest obstruction. No acute osseous abnormality is identified. IMPRESSION: No pathology is identified in the abdomen or pelvis to explain the patient's abdominal pain. There is no renal, ureteral, or bladder calculus. There is no hydronephrosis.
[2025-01-02] MEDS ORDERED: CEFP100T7 PO (19:10)
[2025-01-02 19:17] VITALS: BP 115/73; PULSE 80; RESP 16; TEMP 98.4; O2SAT 98
== END 2025-01-02 19:15 | disposition home or self-care (01) ==
LOC: ER 16:19
DX: N12 Tubulo-interstitial nephritis, not specified as acute or chronic (principal); K21.9 Gastro-esophageal reflux disease without esophagitis; F41.9 Anxiety disorder, unspecified; Z79.899 Other long term (current) drug therapy
CPT/HCPCS: 36415; 74176; 80053; 81001; 81025; 83605; 83690; 85025; 87088; 99284

== ENCOUNTER 2025-02-07 17:22 | Emergency (ER) | payer OTHER ==
[~2025-02-07] VITALS: Ht 162.6 cm; Wt 72.7 kg
[~2025-02-07 17:22] MED LIST changes: +CEFP100T7 PO
[2025-02-07 17:27] VITALS: BP 117/72; PULSE 82; RESP 16; O2SAT 99
--- NOTE | 2025-02-07 17:35 | Physician Documentation ---
History of Present Illness ~ Chief Complaint: Urinary Symptoms Stated Complaint: UTI Time Seen by MD: 17:33 Primary Medical Doctor: AMAIRANI ENCISO [facility] This is a 24-year-old female who presents with dysuria and bilateral low back and flank pain with a past 3-4 days, patient reports history of frequent UTIs and kidney infections, patient reports no fever. Additional note by Roc Bagley, DO: I took over the care of this patient from previous physician. I reviewed any previous notes available, obtain my own history, review of systems and physical examination was performed by myself. She reports bilateral flank pain, intermittent chills, no nausea, no vomiting. Frequent UTIs, frequent antibiotics. Denies any other concerns. Denies any concern for tobacco, alcohol or illicit substances use Medication Reconciliation Allergies: Coded Allergies: No Known Allergies (Unverified , 02/07/25) Scheduled Cefpodoxime Proxetil (Cefpodoxime Proxetil), 2 TAB PO Q12H Fluticasone Propionate (Flonase), 2 SPRAYS BOTHNARES DAILY Miconazole Nitrate (Monistat 7), 1 APPLICATOR VG HS Phenazopyridine Hcl (Pyridium tablet), 1 TAB PO Q8H Sucralfate (Carafate), 1 TAB PO Q6H Scheduled PRN ONDANSETRON ODT 4mg tablet (Ondansetron Odt), 1 TABLET PO Q6H PRN for nausea/vomiting ONDANSETRON ODT 4mg tablet (Ondansetron Odt), 1 TAB PO Q6H PRN PRN for nausea/vomiting Phenazopyridine Hcl (Pyridium tablet), 2 TAB PO Q8H PRN for pain Past Medical History Past Medical History: *GI/HEPATOBILIARY*, GERD, Anxiety Past Surgical History: no surgical history Alcohol Use: None Drug Use: none Lives In: Home Review of Systems ROS As stated above in the HPI, otherwise all systems are reviewed and negative. Physical Exam Vital Signs: Temperature: 97.3, Heart Rate: 82, Respiratory Rate: 16, BP: 117/72, Pulse Oximetry: 99, Weight: 72.700 Oxygen Flow Rate: 0 Physical Exam VITALS: Reviewed and as above. GENERAL: Alert, nontoxic appearing, no apparent distress. HEENT: RESPIRATORY: No increased work of breathing, no respiratory distress, speaking in full clear sentences CHEST: CV: BACK: Mild bilateral CVA tenderness GI: MUSCULOSKELETAL: SKIN: NEURO: PSYCH: Progress Results/Orders Results/Orders Vital Signs 02/07/25 17:27 Temp 97.3 Pulse 82 Resp 16 B/P (MAP) 117/72 Pulse Ox 99 O2 Flow Rate 0 Laboratory Tests Test 02/07/25 17:56 Urine Specimen Description Cln catch midstream Urine Color [place] Urine Clarity Clear Urine pH Urine Specific [place] Urine Protein Urine Glucose (UA) Urine Ketones Urine Occult Blood Urine Nitrite Urine Bilirubin Urine Urobilinogen Urine Leukocyte Esterase Urine RBC 3-10 Urine WBC 10-20 H Urine Squamous Epithelial Cells Moderate Urine Bacteria 3+ Urine Mucus Few Urine Culture Indicated Indicated Volume Urine Centrifuged 10 ml Urine HCG, Qualitative Negative Urine Comment See note Medical Decision Making Findings Facility Status: [facility], [facility], [facility] process The plan was discussed with the patient, who demonstrates clear understanding of the plan and is in agreement with the plan unless otherwise noted in the chart. All questions have been answered, all concerns were addressed unless otherwise documented. I was available throughout their ED stay for frequent reassessment and questions. Differential Diagnoses (considered and possible or likely): [Urinary tract infection, pyelitis, pyelonephritis] ??Differential Diagnoses (considered and unlikely, not requiring evaluation currently): [Unlikely renal colic, unlikely acute intra-abdominal process requiring surgical intervention] MDM Data Please see [facility] for the following: Independent Historians and external Records Review. Historian: [Patient] Independent Historians: ?[Dad, record review] Medication Management: [Reviewed medication list] Social History and determinants: [Reviewed] Please see the body of the note for the following: Any independent interpretations of ECG, imaging studies. All vitals signs/haemodynamics, ordered tests were independently reviewed and interpreted by myself. Nursing triage complaint and vitals reviewed, additional nursing notes were reviewed as available and I agree unless otherwise noted or documented in cont radiction in the chart Vital Signs: Independently reviewed Labs: Independently interpreted Imaging: Independently interpreted Old Medical Records: Independently reviewed, see HPI for relevant summary and information Pulse Oximetry: [97%] interpreted as [normal on room air] by me Additionally notably showing: [Hemodynamically stable. UA is positive for UTI.] Tests considered but not ordered include: [Hematologic workup has been considerably does not appear to be necessary given how well appearing she has.] Social Determinants of Health Impact: Patient was [facility], or [facility] [place] healthcare due to below par ratio of patient to medical providers. [] Comorbid Conditions Impacting Present Evaluation and Care/Treatment: [History of frequent UTIs] Management Discussions with other Healthcare Providers: [None] Treatment and Disposition Medication Management (Given or considered): [Rocephin shot]. See EMR for details Consideration for Hospitalization/Escalation/Deescalation of Care: Admission for observation has been considered, [however the patient is able to tolerate p.o., their symptoms are controlled, they are able to rely on oral medications, and their chief complaint/diagnosis can be managed on outpatient basis.] ?ED Course:?[No clinical deterioration] ?Shared decision making:?[Patient is hemodynamically stable for discharge home with follow with their primary care provider. [ ] Specific and cautious return precautions provided and discussed with full understanding. Any incidental findings were also discussed and follow up recommendations given. [] All questio ns answered. Patient/family were able to verbalize back return precautions. Patient/family agree to plan. Copies of imaging and laboratory studies were provided.] Code status:?FULL Please see the full Electronic Medical Record for full details of nursing documentation, medications list, other records of complete past medical history and conditions, vital signs, laboratory studies, and any radiologic study interpretations by radiologists. Portions of this note were completed using [employer] dictation software and as a result there may exist minor errors in spelling. I have reviewed elements of past family and social history and agree as included in note. Departure Disposition: 01 HOME / SELF CARE / HOMELESS Impression: Primary Impression: Acute urinary tract infection Condition: Improved Discharge Instructions: Acute Urinary Retention, Female, [id number] Referrals: NO PRIMARY CARE PROVIDER (PCP) Prescriptions Azithromycin (Azithromycin) 250 Mg Tablet 1 TAB PO UD for 5 Days, #6 TAB 2 the first day followed by 1 for days 2-5 Prov: ROC BAGLEY DO 02/07/25 Cefpodoxime Proxetil (Vantin) 200 Mg Tablet 1 TAB PO Q12H for 10 Days, #20 TAB Prov: ROC BAGLEY DO 02/07/25 Education Educated: Patient, Family Educated regarding: diagnosis, treatment, prognosis, need for follow up Signature Scribe Signature: No scribe Attestation: This note accurately reflects clinical decisions, work performed by myself, DO JACE Weeks [facility] Feb 07, 2025 17:35 ROC BAGLEY DO Feb 07, 2025 19:01
[2025-02-07 18:08] LABS: URINE HCG NEGATIVE (NEG)
[2025-02-07 18:12] LABS: UA COLLECTION TYPE CLN CATCH MIDSTREAM
[2025-02-07 18:16] LABS: MUCUS STRANDS FEW /LPF (Neg); SQUAMOUS EPITHELIAL CELL,UR MODERATE /LPF (FEW)
[2025-02-07] MEDS ORDERED: AZIT250T29 PO (19:01)
[2025-02-07] MEDS ORDERED: CEFP200T13 PO (19:01)
[2025-02-07 19:04] VITALS: TEMP 97.3
[2025-02-07] MEDS: CefTRIAXone 1000mg IM Kit (w/lidocaine diluent) IM ONE (19:17)
[2025-02-07] MEDS: CefTRIAXone 250MG IM Kit w/LIDOcaine IM ONE (19:18)
== END 2025-02-07 19:22 | disposition home or self-care (01) ==
LOC: ER 17:22
DX: N39.0 Urinary tract infection, site not specified (principal); F41.9 Anxiety disorder, unspecified; K21.9 Gastro-esophageal reflux disease without esophagitis; Z79.899 Other long term (current) drug therapy
CPT/HCPCS: 81001; 81025; 87077; 87088; 87186; 96372; 99283; J0696

== ENCOUNTER 2025-04-27 17:01 | Emergency (ER) | payer OTHER ==
[~2025-04-27] VITALS: Ht 162.6 cm; Wt 73.1 kg
[2025-04-27 17:55] LABS: LEUKOCYTE ESTERASE ,URINE NEGATIVE (Neg); NITRITES, URINE NEGATIVE (Neg); OCCULT BLOOD,URINE NEGATIVE (Neg)
[2025-04-27 17:56] LABS: UA COLLECTION TYPE CLN CATCH MIDSTREAM
[2025-04-27 17:57] LABS: URINE HCG NEGATIVE (NEG)
--- NOTE | 2025-04-27 18:06 | Physician Documentation ---
History of Present Illness ~ Chief Complaint: Urinary Symptoms Stated Complaint: UTI Time Seen by MD: 17:32 OK to notify your PCP?: Yes Primary Medical Doctor: AMAIRANI ENCISO Source: patient Mode of Arrival: POV Exam Limitations: no limitations HPI 25-year-old female with history of interstitial cystitis has been treated several times for UTIs in the last 1 of which was 2 weeks ago. Patient does not recall what antibiotic she was on. Prior to that it was about a month before the 1st UTI. Patient has not been back to have any treatments for her interstitial cystitis but concerned because she is having back pain for the past few days. No fevers she states that she has foul-smelling urine but no dysuria urgency or frequency. Medication Reconciliation Allergies: Coded Allergies: No Known Allergies (Unverified , 04/27/25) Scheduled Cefpodoxime Proxetil (Cefpodoxime Proxetil), 2 TAB PO Q12H Fluticasone Propionate (Flonase), 2 SPRAYS BOTHNARES DAILY Miconazole Nitrate (Monistat 7), 1 APPLICATOR VG HS Phenazopyridine Hcl (Pyridium tablet), 1 TAB PO Q8H Sucralfate (Carafate), 1 TAB PO Q6H Scheduled PRN ONDANSETRON ODT 4mg tablet (Ondansetron Odt), 1 TABLET PO Q6H PRN for nausea/vomiting ONDANSETRON ODT 4mg tablet (Ondansetron Odt), 1 TAB PO Q6H PRN PRN for nausea/vomiting Phenazopyridine Hcl (Pyridium tablet), 2 TAB PO Q8H PRN for pain Past Medical History Past Medical History: *GI/HEPATOBILIARY*, GERD, *RENAL/*, UTI, Anxiety Past Surgical History: no surgical history Alcohol Use: None Drug Use: none Lives In: Home Review of Systems All Other Systems at this time: Reviewed and Negative Genitourinary: Reports: see HPI Physical Exam Vital Signs: RN Vital Signs have been reviewed: Yes, Temperature: 97.0, Source: Temporal, Heart Rate: 89, Respiratory Rate: 18, BP: 104/67, Pulse Oximetry: 98, Weight: 73.100 Oxygen Flow Rate: 0 Physical Exam General: Alert, no apparent distress. HEENT: moist mucous membranes. Neck: Full range of motion. Respiratory: No respiratory distress speaking in full sentences Chest: No accessory muscle use. Cardiovascular: Appears well perfused Genitourinary, mild CVA tenderness Neurologic: Oriented x4. Psychiatric: Normal mood and affect. Skin: Normal color, warm and dry. No edema, no ecchymosis. Progress Results/Orders Results/Orders Vital Signs 04/27/25 17:08 Temp 97.0 Pulse 89 Resp 18 B/P (MAP) 104/67 Pulse Ox 98 O2 Flow Rate 0 Laboratory Tests Test 04/27/25 17:20 Urine Specimen Description Cln catch midstream Urine Color Yellow Urine Clarity Slightly cloudy Urine pH 6.0 Urine Specific [place] >=1.030 Urine Protein Negative Urine Glucose (UA) Negative Urine Ketones Negative Urine Occult Blood Negative Urine Nitrite Negative Urine Bilirubin Negative Urine Urobilinogen 0.2 Urine Leukocyte Esterase Negative Urine RBC 0-2 Urine WBC 0-4 Urine Squamous Epithelial Cells Many Urine Calcium Oxalate Crystals Few Urine Bacteria 1+ Urine Mucus Few Urine Culture Indicated Not ind Volume Urine Centrifuged 10 ml Urine HCG, Qualitative Negative Urine Comment Medical Decision Making Additional information obtaine: N/A Findings Patient has history of interstitial cystitis but is noncompliant with going and receiving treatments and flushes. Patient has been treated several times for UTIs. Urinalysis was negative for leukocytes nitrates protein or blood. Recommended no antibiotics and follow up with Gynecology for treatments for interstitial cystitis. Pain could be musculoskeletal patient is sleeping all day and staying awake all night dad in triage concerned. No trauma or falls triggering any back pain. Differentials included pyelonephritis with a being both sides kidney stones were less likely. Urinary Diff Dx:Considerations: Include: Pyelonephritis, Strain, Urolithiasis, Urinary retention, UTI, Other Genital Diff Dx:Considerations: Include: Other Departure Time of Disposition: 18:21 Disposition: 01 HOME / SELF CARE / HOMELESS Impression: Primary Impression: Chronic interstitial cystitis Condition: Stable Discharge Instructions: Interstitial Cystitis Additional Instructions: Make appointment to follow up for possible infusions and further treatment of your interstitial cystitis. Referrals: NO PRIMARY CARE PROVIDER (PCP) Education Educated: Patient, Family Educated regarding: diagnosis, treatment, need for follow up Signature Scribe Signature: No scribe Attestation: The note accurately reflects work and decisions made by me.Ellie COX 04/27/25 18:06 ELLIE ARIAS NP Apr 27, 2025 18:06
[2025-04-27 18:09] LABS: CAL OXALATE CRYSTALS FEW /HPF (NEGATIVE); MUCUS STRANDS FEW /LPF (Neg); SQUAMOUS EPITHELIAL CELL,UR MANY /LPF (FEW)
[2025-04-27 18:25] VITALS: BP 108/68; PULSE 86; RESP 18; TEMP 98.6; O2SAT 99
== END 2025-04-27 18:27 | disposition home or self-care (01) ==
LOC: ER 17:01
DX: N30.10 Interstitial cystitis (chronic) without hematuria (principal); F41.9 Anxiety disorder, unspecified; K21.9 Gastro-esophageal reflux disease without esophagitis; Z87.440 Personal history of urinary (tract) infections; Z79.899 Other long term (current) drug therapy
CPT/HCPCS: 81001; 81025; 99283

== ENCOUNTER 2025-05-18 20:59 | Emergency (ER) | payer OTHER ==
[~2025-05-18] VITALS: Ht 162.6 cm; Wt 73.6 kg
[2025-05-18 21:00] VITALS: BP 108/70; PULSE 120; TEMP 98.3; O2SAT 96
[2025-05-18 21:52] LABS: LEUKOCYTE ESTERASE ,URINE NEGATIVE (Neg); NITRITES, URINE NEGATIVE (Neg); OCCULT BLOOD,URINE NEGATIVE (Neg)
[2025-05-18 21:53] LABS: URINE HCG NEGATIVE (NEG)
[2025-05-18 21:54] LABS: UA COLLECTION TYPE CLN CATCH MIDSTREAM
[2025-05-18 21:55] LABS: CREATININE 0.73 MG/DL (0.40-0.90); TOTAL CARBON DIOXIDE 25.3 MMOL/L (24-32); eCRCL 102 ML/MIN; eGFR > 90 ML/MIN
[2025-05-18 21:59] LABS: MEAN PLATELET VOLUME 10.4 FL (7.4-10.4); RED CELL DISTRIBUTION WIDTH 14.2 % (11.5-14.5)
[2025-05-18 22:39] VITALS: RESP 16
[2025-05-18] MEDS: ketorolac trometh 15mg/ml vial 15 MG/ML ML IM ONE (22:39)
[2025-05-18] MEDS ORDERED: iohexol 300mg/ml 100ml inj. ONE (23:44)
--- NOTE | 2025-05-18 23:44 | Physician Documentation ---
History of Present Illness Chief Complaint: Flank Pain Stated Complaint: BACK PAIN Time Seen by MD: 21:26 Primary Medical Doctor: AMAIRANI ENCISO Mode of Arrival: Ambulatory HPI Patient is a pleasant 25-year-old female that presents to the emergency department for several days of flank pain associated with abdominal pain. Patient reports she has been treated 3 times in the last month and a half for UTIs. Patient reports that she just finished her last course of antibiotics a couple of days ago. Patient reports that she has had nausea associated with the lower abdominal pain that extends into the left and right flanks. Patient denies any blood in her urine or stool does report significant dysuria patient also reports fevers chills. Patient denies headache vomiting or diarrhea at this time. Medication Reconciliation Allergies: Coded Allergies: No Known Allergies (Unverified , 05/18/25) Scheduled Cefpodoxime Proxetil (Cefpodoxime Proxetil), 2 TAB PO Q12H Fluticasone Propionate (Flonase), 2 SPRAYS BOTHNARES DAILY Miconazole Nitrate (Monistat 7), 1 APPLICATOR VG HS Phenazopyridine Hcl (Pyridium tablet), 1 TAB PO Q8H Sucralfate (Carafate), 1 TAB PO Q6H Scheduled PRN ONDANSETRON ODT 4mg tablet (Ondansetron Odt), 1 TABLET PO Q6H PRN for nausea/vomiting ONDANSETRON ODT 4mg tablet (Ondansetron Odt), 1 TAB PO Q6H PRN PRN for nausea/vomiting Phenazopyridine Hcl (Pyridium tablet), 2 TAB PO Q8H PRN for pain Past Medical History Past Medical History: *GI/HEPATOBILIARY*, GERD, *RENAL/*, UTI, Anxiety Past Surgical History: no surgical history Smoking Status: Current every day smoker Alcohol Use: None Drug Use: none Lives In: Home Review of Systems ROS As stated above in the HPI, otherwise all systems are reviewed and negative. Physical Exam Vital Signs: Temperature: 98.3, Source: Oral, Heart Rate: 120, Respiratory Rate: 16, BP: 108/70, Pulse Oximetry: 96, Weight: 73.600 Oxygen Flow Rate: 0 Physical Exam VITALS: Reviewed and as above. GENERAL: Alert, no apparent distress. HEENT: Normocephalic, atraumatic, PERRL, EOMI, dry mucosa, no erythema RESPIRATORY: Lungs clear, normal breath sounds, no respiratory distress. CHEST: No accessory muscle use, no retractions CV: Regular rate, rhythm, no edema, no murmur, No: JVD GI: Soft, non-tender, bowels sounds present, no rebound, guarding, or rigidity BACK: Positive CVA tenderness, or swelling MUSCULOSKELETAL No deformities, no edema SKIN: Warm and dry, no rash NEURO: Oriented x4, No motor or sensory deficit PSYCH: Normal mood and affect, no agitation Progress Results/Orders Results/Orders Orders - SHEILA PORTILLO CONTRACT DESIGNER Ct Abdomen Pelvis (05/18/25 23:38) * Iv Access / Saline Lock * (05/18/25 23:38) Completed Orders - SHEILA PORTILLO CONTRACT DESIGNER Ketorolac Trometh 15mg/Ml Vial (Toradol (05/18/25 22:25) Acetaminophen 325mg Tablet (Tylenol Tabl (05/18/25 22:25) Medications Received in ER Medications (Trade) Dose Ordered Sig/Moises Route PRN Reason Start Time Stop Time Status Last Admin Dose Admin (Toradol injection) 30 mg ONCE ONCE IM 05/18/25 22:25 05/18/25 22:27 DC 05/18/25 22:39 30 MG (Tylenol tablet) 975 mg ONCE ONCE PO 05/18/25 22:25 05/18/25 22:27 DC 05/18/25 22:39 975 MG Vital Signs 05/18/25 05/18/25 05/18/25 21:00 22:15 22:39 Temp 98.3 Pulse 120 Resp 16 16 16 B/P (MAP) 108/70 Pulse Ox 96 O2 Flow Rate 0 Laboratory Tests Test 05/18/25 21:08 05/18/25 21:30 Urine Specimen Description Cln catch midstream Urine Color Yellow Urine Clarity Clear Urine pH 6.5 Urine Specific [place] 1.015 Urine Protein Negative Urine Glucose (UA) Negative Urine Ketones Negative Urine Occult Blood Negative Urine Nitrite Negative Urine Bilirubin Negative Urine Urobilinogen 0.2 Urine Leukocyte Esterase Negative Urine Culture Indicated Not ind Volume Urine Centrifuged 10 ml Urine HCG, Qualitative Negative Urine Comment White Blood Count 5.6 Red Blood Count 4.56 Hemoglobin 13.7 Hematocrit 40.9 Mean Corpuscular Volume 89.7 Mean Corpuscular Hemoglobin 30.1 Mean Corpuscular Hemoglobin Concent 33.6 Red Cell Distribution Width 14.2 Platelet Count 211 Mean Platelet Volume 10.4 Neutrophils (%) (Auto) 77.7 H Lymphocytes (%) (Auto) 15.1 L Monocytes (%) (Auto) 4.5 Eosinophils (%) (Auto) 2.1 Basophils (%) (Auto) 0.6 Neutrophils # (Auto) 4.3 Lymphocytes # (Auto) 0.8 L Monocytes # (Auto) 0.3 Eosinophils # (Auto) 0.1 Basophils # (Auto) 0.0 CBC Comment Sodium Level 138 Potassium Level 4.0 Chloride Level 105 Carbon Dioxide Level 25.3 Anion Gap 8 Blood Urea Nitrogen 10 Creatinine 0.73 Estimated GFR/1.73 m2 > 90 BUN/Creatinine Ratio 13.7 Glucose Level 90 Calcium Level 8.6 Total Bilirubin 0.7 Aspartate Amino Transf (AST/SGOT) 16 Alanine Aminotransferase (ALT/SGPT) 12 Alkaline Phosphatase 72 Total Protein 7.8 Albumin 3.7 Globulin 4.1 Albumin/Globulin Ratio 0.9 L Lipase 33 Chemistry Comments Medical Decision Making Additional information obtaine: other Findings Medical Decision-Making Number of Diagnoses/Management Options: Moderate complexity. This 25-year-old female presents with recurrent urinary tract infections, defined as ?3 UTIs within 12 months, having been treated three times in the last six weeks. Current presentation includes flank pain, abdominal pain, dysuria, fevers, and chills, raising concern for possible pyelonephritis or complicated infection. [1] Amount/Complexity of Data Reviewed: Moderate complexity. Urinalysis reviewed and shows no evidence of active infection. CT abdomen/pelvis obtained given co ncerning symptoms of bilateral flank pain and recent recurrent infections, which revealed no abnormalities including no evidence of nephrolithiasis, abscess, obstruction, or anatomical abnormalities. While imaging is generally of low yield in patients with uncomplicated recurrent UTI who respond promptly to therapy, it was appropriate in this case given the bilateral flank pain, fever, and concern for upper tract involvement or complications. [2] Risk of Complications: Moderate risk. Patient has established recurrent UTI pattern with recent antibiotic exposure, which increases risk of antibiotic- resistant organisms. However, reassuring imaging and urinalysis suggest this episode may represent post-infectious symptoms or non-infectious etiology rather than active complicated infection. No evidence of urinary retention, obstruction, or structural abnormality that would increase risk. Assessment and Plan: Given negative urinalysis and imaging, current symptoms likely represent post- infectious inflammation or non-UTI etiology rather than active infection requiring antibiotics at this time. Patient counseled that routine urologic evaluation with imaging has low diagnostic yield in women with recurrent uncomplicated cystitis, though was appropriate given her presentation. [4] Discharge plan includes: Non-antibiotic preventive strategies: Counseled on behavioral modifications including increased fluid intake, post-coital voiding, and avoidance of spermicide-containing contraceptives if applicable. [3-4] Alternative prophylaxis options: Discussed cranberry products, D-mannose, and methenamine as potential preventive measures with lower risk profiles than antibiotic prophylaxis. [5-6] Follow-up: Instructed to follow up with primary care physician within 1-2 weeks for discussion of long-term prevention strategies. If symptoms worsen or new fever develops, patient should return to ED or seek urgent evaluation. Future management: At least one future symptomatic episode should be verified by urine culture to confirm diagnosis and guide treatment. Patient may benefit from patient-initiated treatment strategy or prophylactic approaches if recurrences continue. [3-4][7] Patient verbalized understanding of discharge instructions and plan. Differential Dx:Considerations: Bowel obstruction, Ischemic bowel, Ovarian cyst/torsion, Urinary obstruction, Urinary tract infection, Urolithiasis, Other Departure Disposition: 01 HOME / SELF CARE / HOMELESS Impression: Primary Impression: Flank pain Additional Impression: Low back pain Condition: Stable Additional Instructions: Your Diagnosis You came to the emergency department with flank pain, abdominal pain, and urinary symptoms. Your testing today, including urine tests and a CT scan of your abdomen and pelvis, did not show signs of an active infection or other problems. Your symptoms may be related to inflammation after your recent infections or another cause. What We Did Today Reviewed your urine test - no signs of infection Performed a CT scan of your abdomen and pelvis - no abnormalities found Gave you ketorolac (Toradol) injection and acetaminophen (Tylenol) for pain relief Medications and Pain Management You may continue taking [id number] acetaminophen (Tylenol) or ibuprofen (Advil, Motrin) as directed on the package for pain relief. Follow the dosing instructions on the bottle and do not exceed the maximum daily dose. Follow-Up Care Schedule an appointment with your primary care doctor within 1-2 weeks. Your doctor needs to discuss long-term prevention strategies for your recurrent urinary tract infections. You have had three infections in the last six weeks, which means you have recurrent UTIs (defined as three or more infections in 12 months). [1] Preventing Future Infections There are several steps you can take to help prevent future urinary tract infections: [2-4] Behavioral changes: Drink plenty of water throughout the day Urinate when you feel the urge - don't hold it Urinate soon after sexual intercourse If you use spermicide-containing control (including spermicide condoms or diaphragm), consider switching to a different method Prevention options to discuss with your doctor: Cranberry products may help reduce infections [2][5] D-mannose (a natural sugar supplement) has shown benefit in preventing recurrences [5-6] Methenamine (a prescription medication) can help prevent infections [3][6] Vaginal estrogen cream (if you are postmenopausal) [2][6] Your doctor may also discuss whether you need antibiotic prevention, though non- antibiotic options are often tried first to avoid antibiotic resistance and side effects. [1][3] When to Return to the Emergency Department Come back to the emergency department or seek urgent medical care if you develop: Fever (temperature over 100.4F or 38C) Worsening pain in your back, sides, or abdomen Blood in your urine Inability to urinate Nausea or vomiting New or worsening symptoms discussed during your visit today Any other concerning symptoms Important Information About Future Infections If you develop UTI symptoms again (burning with urination, frequent urination, urgency), contact your primary care doctor. They may want to confirm the infection with a urine culture before starting antibiotics, especially given your recent antibiotic use. This helps ensure you get the right treatment and helps prevent antibiotic resistance. [2-3] Referrals: NO PRIMARY CARE PROVIDER (PCP) Education Educated: Patient Educated regarding: diagnosis, treatment, need for follow up Signature Scribe Signature: A Attestation: Scribed for Sheila Portillo by BROOKE Gerber . 05/19/25 01:27 SHEILA PORTILLO May 18, 2025 23:44
--- NOTE | 2025-05-19 01:11 | RADIOLOGY REPORT ---
EXAM: CT CT ABDOMEN PELVIS W/ IV CONTRAST History: Flank pain, nausea COMPARISON: CT CT ABDOMEN PELVIS on DOS: 01/02/25, CT CT ABDOMEN PELVIS on DOS: 09/18/23 TECHNIQUE: Multidetector spiral CT of the abdomen and pelvis was performed from lung bases to pubic symphysis. Intravenous contrast was administered during this examination. Portal venous imaging was obtained. Axial, coronal and sagittal multiplanar reformats were performed by the technologist on a separate workstation. Radiation Dose : 1. Abdomen/Pelvis: CTDIvol 16.29 mGy, DLP 74.25 mGy*cm. CONTRAST: Type of contrast: Omniscan 300 Contrast injected: 100 ml FINDINGS: Lung Bases: No acute or significant lung base finding. Normal heart size. No pleural or pericardial effusion. Liver: The liver is normal in size. No focal lesions. Normal hepatic vascular enhancement. Gallbladder and Biliary Tree: Unremarkable Spleen: Unremarkable Pancreas: The pancreas is normal in appearance without focal lesions or abnormal enhancement. Adrenal Glands: Unremarkable Kidneys: No nephrolithiasis or hydronephrosis. 1.0 cm right interpolar renal cortical cyst. Bladder: Unremarkable Bowel: The stomach is grossly normal in appearance. Small bowel and colon are normal in caliber and distribution. The appendix is normal. Ascites: Absent Lymphadenopathy: No mesenteric, retroperitoneal or periportal lymphadenopathy. Abdominal Wall and Mesentery: Unremarkable. Vasculature: The visualized abdominal aorta is normal in size and caliber. Abdominal and pelvic vessels demonstrate normal enhancement. Pelvic Organs: Unremarkable. Likely physiologic endometrial fluid. Musculoskeletal: No aggressive focal bony lesions, acute fractures or dislocation. IMPRESSION: 1. No acute abdominal or pelvic finding. Radiation optimization: All CT scans at this facility use at least one of these dose optimization techniques: automated exposure control mA and/or kV adjustment per patient size (includes targeted exams where dose is matched to clinical indication) or iterative reconstruction.
== END 2025-05-19 01:37 | disposition home or self-care (01) ==
LOC: ER 20:59
DX: M54.50 Low back pain, unspecified (principal); F17.200 Nicotine dependence, unspecified, uncomplicated; F41.9 Anxiety disorder, unspecified; K21.9 Gastro-esophageal reflux disease without esophagitis; Z87.440 Personal history of urinary (tract) infections; Z79.899 Other long term (current) drug therapy
CPT/HCPCS: 36415; 74177; 80053; 81003; 81025; 83690; 85025; 96372; 99285; J1885; Q9967

== ENCOUNTER 2025-05-31 22:23 | Emergency (ER) | payer OTHER ==
[~2025-05-31] VITALS: Ht 162.6 cm; Wt 72.7 kg
[2025-05-31 23:11] LABS: MEAN PLATELET VOLUME 9.0 FL (7.4-10.4); RED CELL DISTRIBUTION WIDTH 13.6 % (11.5-14.5)
[2025-05-31 23:24] LABS: CREATININE 0.75 MG/DL (0.40-0.90); TOTAL CARBON DIOXIDE 26.3 MMOL/L (24-32); eCRCL 99 ML/MIN; eGFR > 90 ML/MIN
--- NOTE | 2025-06-01 00:39 | Physician Documentation ---
History of Present Illness Chief Complaint: Bloody Emesis Stated Complaint: THROWING UP BLOOD PAIN IN LEFT SHOULDER OK to notify your PCP?: Yes Primary Medical Doctor: AMAIRANI ENCISO Source: patient Mode of Arrival: POV Exam Limitations: no limitations HPI Patient is a 25-year-old female with history of GERD and esophageal stricture presenting to the ED for evaluation of bloody emesis. Patient reports that a few hours prior to arrival she has been nauseous and vomiting chunks of red blood." She denies consuming any red foods or traumas to mouth, chest or abdomen. She's been experiencing chills, heartburn, dizziness, nausea, generalized weakness, tiredness and diaphoresis. Denies any fevers, abdominal pain, congestion, fevers, breast tenderness or breast swelling. The last time she had an endoscopy done was three years ago. She denies any NSAIDs or aspirin use. She only drinks occasional alcohol and last drink was one week ago. Denies any smoking or illicit drugs. Medication Reconciliation Allergies: Coded Allergies: No Known Allergies (Unverified , 05/18/25) Scheduled Cefpodoxime Proxetil (Cefpodoxime Proxetil), 2 TAB PO Q12H Fluticasone Propionate (Flonase), 2 SPRAYS BOTHNARES DAILY Miconazole Nitrate (Monistat 7), 1 APPLICATOR VG HS ONDANSETRON ODT 4mg tablet (Ondansetron Odt), 4 MG PO PRN Omeprazole (Prilosec), 1 CAP PO DAILY Phenazopyridine Hcl (Pyridium tablet), 1 TAB PO Q8H Sucralfate (Carafate), 1 TAB PO Q6H Scheduled PRN ONDANSETRON ODT 4mg tablet (Ondansetron Odt), 1 TABLET PO Q6H PRN for nausea/vomiting ONDANSETRON ODT 4mg tablet (Ondansetron Odt), 1 TAB PO Q6H PRN PRN for nausea/vomiting Phenazopyridine Hcl (Pyridium tablet), 2 TAB PO Q8H PRN for pain Past Medical History Past Medical History: *GI/HEPATOBILIARY*, GERD, *RENAL/*, UTI, Anxiety Other Past Medical History: Esophageal stricture, interstitial cystitis Past Surgical History: other Smoking Status: Never smoker Alcohol Use: None Drug Use: none Lives In: Home Review of Systems All Other Systems at this time: Reviewed and Negative ROS Constitutional: Positive for chills, diaphoresis and generalized weakness. Negative for fever. HENT: Negative for sore throat and rhinorrhea. Eyes: Negative for pain and redness. Respiratory: Negative for cough and SOB. Cardiovascular: Positive for heartburn. Negative for palpitations. Gastrointestinal: Positive for nausea vomiting.. Genitourinary: Negative for dysuria and hematuria. Musculoskeletal: Negative for acute back pain and acute neck pain. Skin: Negative for rash and pruritus. Neurological: Positive for dizziness Negative for acute numbness or weakness. Physical Exam Vital Signs: RN Vital Signs have been reviewed: Yes, Heart Rate: 80, Respiratory Rate: 20, BP: 107/70, Pulse Oximetry: 97, Weight: 72.700 Oxygen Flow Rate: 0 Pulse Oximetry Reflects: adequate oxygenation Physical Exam General: Awake no acute distress. Verbal Head: No trauma Eyes: Nl lids Nl conjunctiva. No eye discharge ENT: Mucous membranes Nl. Lips Nl. No lesions Neck: Supple. No JVD. No visible mass Resp: Rate normal. No respiratory distress. No retractions. Normal air flow. No wheezes, rhonchi, or rales. Heart: Regular rhythm. No murmur. No rub Abdomen: Soft. Nontender. No guarding. No rebound Musc/skeletal: No calf or popliteal tenderness. No edema Skin: No rash. No petechiae. Not diaphoretic Neuro: Alert, oriented. Normal speech Progress Progress Note 0431: On re-evaluation patient is feeling better after the medications. Results/Orders Results/Orders Vital Signs 05/31/25 22:35 Pulse 80 Resp 20 B/P (MAP) 107/70 Pulse Ox 97 O2 Flow Rate 0 Laboratory Tests Test 05/31/25 22:59 White Blood Count 8.3 Red Blood Count 4.49 Hemoglobin 13.6 Hematocrit 40.0 Mean Corpuscular Volume 89.0 Mean Corpuscular Hemoglobin 30.2 Mean Corpuscular Hemoglobin Concent 33.9 Red Cell Distribution Width 13.6 Platelet Count 320 Mean Platelet Volume 9.0 Neutrophils (%) (Auto) 64.9 Lymphocytes (%) (Auto) 22.8 Monocytes (%) (Auto) 7.0 Eosinophils (%) (Auto) 4.3 Basophils (%) (Auto) 1.0 Neutrophils # (Auto) 5.4 Lymphocytes # (Auto) 1.9 Monocytes # (Auto) 0.6 Eosinophils # (Auto) 0.4 Basophils # (Auto) 0.1 CBC Comment Sodium Level 141 Potassium Level 4.2 Chloride Level 105 Carbon Dioxide Level 26.3 Anion Gap 10 Blood Urea Nitrogen 13 Creatinine 0.75 Estimated GFR/1.73 m2 > 90 BUN/Creatinine Ratio 17.3 Glucose Level 71 Calcium Level 8.9 Total Bilirubin 0.2 Aspartate Amino Transf (AST/SGOT) 15 Alanine Aminotransferase (ALT/SGPT) 22 Alkaline Phosphatase 79 Total Protein 8.2 Albumin 3.7 Globulin 4.5 H Albumin/Globulin Ratio 0.8 L Lipase 40 Chemistry Comments Medical Decision Making Additional information obtaine: old records, family, N/A Findings MDM: Patient is describing GERD with retching and acidic taste in her mouth. Patient was given Reglan 10 mg IV with 250 mL of fluid, Zofran 4 mg IV, magnesium sulfate 2 g IV, 40 mg of pantoprazole IV and a lactated Ringer's fluid bolus. Labs are stable negative. Hemoglobin stable. After medications no further episodes of vomiting patient states she feels back to her baseline at this time. Patient has good GI follow-up and they will be making an appointment for outpatient EGD. Omeprazole prescription written for 30 days until they can follow-up with GI. Return precautions discussed with patient and family who expressed understanding. Return precautions discussed as patient and family would like to go home at this time and follow-up outpatient. They expressed full understanding if symptoms continue to worsen or change in nature come back to the ED for an urgent EGD given her history. One independent historian present Three plus modalities used to diagnose Nursing notes reviewed Triage Notes reviewed No social issues at this time Differential diagnosis is PUD, gastritis, varices, stricture, Antoinette-Adam tears Clinical diagnosis is GERD Patient has significant history of GERD. Differential Dx:Considerations: Esophagitis, Gastritis/PUD, GI hemorrhage, N/A Additional Comments See MDM Departure Disposition: HOME / SELF CARE / HOMELESS Impression: Primary Impression: Intractable nausea and vomiting Additional Impressions: Gastritis GERD (gastroesophageal reflux disease) Condition: Stable Discharge Instructions: Gastritis, Adult, [id number], Hematemesis Additional Instructions: Take medications as prescribed. As discussed please follow-up with your quality control tester closely to further evaluate your concerns. Also follow-up wi th your primary care provider regarding today's visit. Return to the ED for any new or worsening symptoms. Referrals: NO PRIMARY CARE PROVIDER (PCP) Prescriptions ONDANSETRON ODT 4mg tablet (ONDANSETRON ODT) 4 Mg Tab.rapdis 4 MG PO PRN for 7 Days, #10 TAB Prov: WILLIE KNOX MD 06/01/25 Omeprazole (Prilosec) 40 Mg Capsule 1 CAP PO DAILY, #30 CAP 3 Refills Prov: WILLIE KNOX MD 06/01/25 Education Educated: Patient Educated regarding: diagnosis, treatment Additional Comment Medical Screen Exam This patient recieved a medical screening examination. After reviewing the individual's medical complaints with presenting symptoms and performing an appropriate physical examination, it was determined that no immediate life- threatening emergency medical condition is present. This individual is also not a women having contractions. Signature Scribe Signature: Scribed for Willie Knox MD by Nathan Ferrer . 06/01/25 03:31 Attestation: Signed by Willie Knox MD by Willie Knox . June 04, 2025 3:20 p.mAMILCAR LARA Jun 01, 2025 00:39 NATHAN RENO Jun 01, 2025 04:13 WILLIE KNOX MD Jun 01, 2025 05:47
[2025-06-01 02:14] LABS: URINE HCG NEGATIVE (NEG)
[2025-06-01 02:15] LABS: LEUKOCYTE ESTERASE ,URINE NEGATIVE (Neg); NITRITES, URINE NEGATIVE (Neg); OCCULT BLOOD,URINE TRACE-INTACT (Neg)
[2025-06-01] MEDS: ondansetron 4mg rapidly disintigrating tab PO ONE (02:20)
[2025-06-01 02:23] LABS: UA COLLECTION TYPE VOIDED
[2025-06-01 02:25] LABS: SQUAMOUS EPITHELIAL CELL,UR MODERATE /LPF (FEW)
[2025-06-01] MEDS: magnesium sulf-water 2g/50mL 50 ML IV ONE (03:30)
[2025-06-01] MEDS: metoclopramide 5 mg/ml inj IV ONE (04:27)
[2025-06-01] MEDS: ondansetron/PF 4mg/2ml inj IV ONE (04:27)
[2025-06-01] MEDS: ringers solution, lacted 1,000 ML IV ONE (04:29)
[2025-06-01] MEDS ORDERED: ONDA-243 PO (05:46)
[2025-06-01] MEDS ORDERED: OMEP40CA21 PO (05:46)
[2025-06-01 05:56] VITALS: BP 115/75; PULSE 98; RESP 18; TEMP 98.2; O2SAT 99
== END 2025-06-01 06:01 | disposition home or self-care (01) ==
LOC: ER 22:25
DX: K92.0 Hematemesis (principal); K29.70 Gastritis, unspecified, without bleeding; K21.9 Gastro-esophageal reflux disease without esophagitis; F41.9 Anxiety disorder, unspecified; Z87.440 Personal history of urinary (tract) infections
CPT/HCPCS: 36415; 80053; 81001; 81025; 83690; 85025; 96361; 96365; 96375; 99284; J2405; J2765; J7120; 96366